=== PATIENT | female | born 1975 | race Caucasian/White ===

== ENCOUNTER 2018-05-14 19:49 | Emergency (ER) | payer OTHER ==
[2018-05-14] MEDS: KETOROLAC 30 MG INJ IM ×2 (21:52→22:20)
== END 2018-05-15 01:18 | disposition home or self-care (01) ==
LOC: FTE 05-15 01:18
DX: S10.93XA Contusion of unspecified part of neck, initial encounter (principal); M62.838 Other muscle spasm; V43.62XA Car passenger injured in collision with other type car in traffic accident, initial encounter; Z85.43 Personal history of malignant neoplasm of ovary
CPT/HCPCS: 71046; 72040; 72100; 81025; 96372; 99284-25